=== PATIENT | female | born 1955 | race Caucasian/White ===

== ENCOUNTER → 2017-03-20 | Outpatient (CLI) | payer OTHER ==
[~2017-03-20] MED LIST: LINZESS145 MCG PO; NASONEX17 GM NS; PRILOSEC 20 MG20 MG PO; PROZAC20 MG PO
== END ==
LOC: M.RAD 08:44
DX: Z12.31 Encounter for screening mammogram for malignant neoplasm of breast (principal)

== ENCOUNTER → 2018-03-22 | Outpatient (CLI) | payer OTHER | LOC: M.RAD 08:32 | DX: Z12.31 Encounter for screening mammogram for malignant neoplasm of breast (principal) ==

== ENCOUNTER → 2019-05-02 | Outpatient (CLI) | payer OTHER | LOC: M.RAD 04-21 13:00 | DX: Z12.31 Encounter for screening mammogram for malignant neoplasm of breast (principal) ==

== ENCOUNTER → 2020-01-16 | Outpatient (CLI) | payer OTHER | LOC: M.MRI 10:50 | PROVIDERS: ATTEND Internal Medicine Gastroenterology | DX: R10.12 Left upper quadrant pain (principal); R10.11 Right upper quadrant pain ==

== ENCOUNTER → 2020-11-02 | Outpatient (CLI) | payer MEDICARE | LOC: M.RAD 09:30 | PROVIDERS: ATTEND General Practice | DX: Z12.31 Encounter for screening mammogram for malignant neoplasm of breast (principal) ==